=== PATIENT | female | born 1955 | race Caucasian/White ===

== ENCOUNTER → 2016-08-14 | Outpatient (CLI) | payer OTHER ==
[~2016-08-14] MED LIST: AGM875 PO; ATOR-22 PO; CETI10TA84 PO; CLR10 PO; LPTUNK; PRLSR20 PO; RXC5 PO; TRAM-10 PO; VSC/5 PO; ZFRODT4 SL; ZNTT/150 PO
--- NOTE | 2016-08-14 16:33 | DIAGNOSTIC IMAGING REPORT ---
CERVICAL SPINE MRI HISTORY: Pain. Neuropathy. CERVICAL RADICULOPATHY TECHNIQUE: Multiplanar multisequence MRI of the cervical spine was performed without the use of contrast. COMPARISON STUDY: None. FINDINGS: Findings of an anterior cervical fusion from C5 through C7. Signal characteristics of the vertebral bodies as well as intervertebral discs appear unremarkable. C2-C3: No significant central canal or neural foraminal narrowing. C3-C4: Minimal osteophytic narrowing of the neuroforamina bilaterally. C4-C5: Mild broad-based disc herniation. Minimal to mild impact anterior aspect cervical cord. Moderate narrowing of the neuroforamina bilaterally. C5-C6: No significant central canal or neural foraminal narrowing. C6-C7: No significant central canal or neural foraminal narrowing. C7-T1: No significant central canal or neural foraminal narrowing. IMPRESSION: 1. Findings consistent with an anterior fusion from C5 through C7. 2. Mild broad-based disc herniation C4-C5 with mild impact upon the anterior cervical cord and moderate to rather significant narrowing of the neural foramina bilaterally. 3. Mild narrowing of the neuroforamina bilaterally at C3-C4. Electronically signed by: Ralph Ga M.D. 08/14/2016 4:31 PM Dictated Date/Time: 08/14/2016 4:29 PM
== END | disposition home or self-care (01) ==
LOC: C.MRIBC 15:17
PROVIDERS: ATTEND Internal Medicine
DX: M54.12 Radiculopathy, cervical region (principal); Z98.1 Arthrodesis status

== ENCOUNTER 2016-11-12 05:35 | Observation (INO) | payer OTHER ==
[2016-10-29 09:19] VITALS: BMI 33.0
--- NOTE | 2016-10-29 09:46 | PAT Medication Instructions ---
Service Date Oct 29, 2016. Current Home Medication List Atorvastatin (Lipitor), 20 MG PO QAM Cetirizine (Zyrtec), 10 MG PO QAM Omeprazole (Prilosec), 40 MG PO QAM Tramadol (Ultram), 50 MG PO PRN Medication Instructions For Your Scheduled Surgery - Hold the following medications the morning of surgery: Cetirizine (Zyrtec), 10 MG PO QAM - Take the following medications the morning of surgery with a sip of water OTHERWISE NOTHING TO EAT OR DRINK AFTER MIDNIGHT: Tramadol (Ultram), 50 MG PO PRN (may take if needed up to 4 hours prior to surgery) Atorvastatin (Lipitor), 20 MG PO QAM Omeprazole (Prilosec), 40 MG PO QAM - Take the following medications as scheduled the night before surgery: Tramadol (Ultram), 50 MG PO PRN If you have any questions please call us at [phone] or [phone] or [phone]
[2016-10-29 10:28] LABS: BASO % 0.8 %; BASO ABS # 0.04 K/uL (0-0.2); COMPLETE YES; EOS % 3.8 %; HEMATOCRIT 40.7 % (37-47); LYMPH % 31.1 %; LYMPH ABS # 1.47 K/uL (1.2-3.4); MEAN CELL VOLUME 90.6 fL (80-100); MEAN CORPUSCULAR HGB CONC 34.2 g/dl (32-36); MEAN PLATELET VOLUME 9.6 fL (7.4-10.4); MONO % 11.2 %; NEUT % 53.1 %; PLATELET COUNT 237 K/uL (130-400); RED BLOOD COUNT 4.49 M/uL (4.2-5.4); WHITE BLOOD COUNT 4.73 K/uL (4.8-10.8)
--- NOTE | 2016-10-29 10:57 | DIAGNOSTIC IMAGING REPORT ---
CHEST PREADMISSION(PA/LAT) HISTORY: 61 years Female preadmission exam COMPARISON: Chest radiograph 05/20/2006 TECHNIQUE: Frontal and lateral views of the chest FINDINGS: Cardiomediastinal and hilar silhouettes are within normal limits. There is no pneumothorax, pleural effusion or focal airspace consolidation. There is mild elevation of the right hemidiaphragm. There is atherosclerosis of the aorta. Fusion hardware of the lower cervical spine is partially imaged. The bones appear grossly intact. IMPRESSION: No acute cardiopulmonary process. The above report was generated using voice recognition software. It may contain grammatical, syntax or spelling errors. Electronically signed by: Luis Mandel M.D. 10/29/2016 10:56 AM Dictated Date/Time: 10/29/2016 10:55 AM
[2016-10-29 11:25] LABS: BUN/CREATININE RATIO 19.6 (10-20); CALCIUM 9.2 mg/dl (8.5-10.1); CREATININE 0.73 mg/dl (0.60-1.20); POTASSIUM 3.8 mmol/L (3.5-5.1)
[2016-10-29 12:37] LABS: URINE APPEARANCE CLEAR (CLEAR); URINE BILIRUBIN NEG (NEG); URINE COLOR YELLOW; URINE NITRITE NEG (NEG); URINE SPECIFIC GRAVITY 1.017 (1.000-1.030); UROBILINOGEN NEG (NEG)
[2016-10-29 12:47] LABS: MANUAL MICROSCOPIC REQUIRED? NO; REVIEW REQ? NO
[~2016-11-12] VITALS: Ht 154.9 cm; Wt 78.9 kg
[2016-11-12] VITALS (15 sets, daily range): BP systolic 123–148; BP diastolic 81–99; PULSE 62–102; TEMP 36.4–36.9; O2SAT 94–100; Ht 154.9 cm; Wt 78.9 kg
[~2016-11-12 05:35] MED LIST changes: -AGM875 PO; -CLR10 PO; -LPTUNK; -RXC5 PO; -VSC/5 PO; -ZFRODT4 SL; -ZNTT/150 PO
[2016-11-12] MEDS ORDERED: CEFAZOLIN 1000MG/55 ML D5W IV SCH (06:00)
[2016-11-12] MEDS ORDERED: LACTATED RINGER'S 1000ML 1,000 ML IV SCH ×2 (06:00→09:27)
[2016-11-12] MEDS ORDERED: MIDAZOLAM HCL 1 MG/ML 2ML VIAL ONE (06:49)
[2016-11-12] MEDS ORDERED: FENTANYL CITRATE INJ 50 MCG/1 ML 2 ML VIAL ONE ×3 (06:49→08:34)
[2016-11-12] MEDS ORDERED: SODIUM CHLORIDE 0.9% PF 50 ML VIAL ONE (06:58)
[2016-11-12] MEDS ORDERED: BACITRACIN 50000 UNIT VIAL ONE (06:58)
[2016-11-12] MEDS ORDERED: SCOPOLAMINE 1.5 MG TDSY TD ONE (07:23)
[2016-11-12] MEDS ORDERED: ONDANSETRON INJ 2 MG/ML 2 ML VIAL IV PRN (07:30)
[2016-11-12] MEDS ORDERED: EpHEDrine SULFATE INJ 50 MG/ML AMP IV PRN (07:30)
[2016-11-12] MEDS ORDERED: HYDROmorphone INJ 1 MG/ML SYR IV PRN ×2 (07:30→11:15)
[2016-11-12] MEDS ORDERED: NURSING VERBAL MED ORDER ONE ×3 (07:30→14:00)
[2016-11-12] MEDS ORDERED: ATROPINE SULFATE 0.1 MG/ML 5ML SYR IV PRN (07:30)
[2016-11-12] MEDS ORDERED: FENTANYL CITRATE INJ 50 MCG/1 ML 2 ML VIAL IV PRN (07:30)
--- NOTE | 2016-11-12 07:39 | History & Physical Bridge Note ---
H&P Re-Evaluation Bridge Note: I have examined the patient, reviewed the History & Physical and in the interval since the performance of the History & Physical I have noted the following changes of clinical significance: No changes noted
--- NOTE | 2016-11-12 07:40 | History and Physical ---
History & Physical Date Nov 12, 2016. Chief Complaint neck and arm pain History of Present Illness The patient is a 61 year old female with complaints of neck and arm pain Additional History Hepatic Disease: No Endocrine Disorder: No Kidney Disease: No Hypertension: No Heart Disease: No Bleeding Tendencies: No Infectious Diseases: No Allergies Coded Allergies: Duloxetine (Unverified Allergy, Severe, HALLUCINATIONS, 11/12/16) Adhesives (Unverified Allergy, Unknown, RED HIVES PATCHES, 11/12/16) Pregabalin (Verified Adverse Reaction, Severe, HALLUCINATIONS, 11/12/16) Home Medications Scheduled Atorvastatin (Lipitor), 20 MG PO QAM Cetirizine (Zyrtec), 10 MG PO QAM Omeprazole (Prilosec), 40 MG PO QAM Tramadol (Ultram), 50 MG PO PRN Physical Examination Skin: warm/dry, no rash Eyes: normal inspection, EOMI, sclerae normal ENT: normal ENT inspection, pharynx normal Head: normocephalic, atraumatic Neck: supple, no adenopathy, trachea midline Respiratory/Chest: lungs clear, normal breath sounds, no respiratory distress Cardiovascular: regular rate, rhythm, no edema, no murmur Abdomen / GI: normal bowel sounds, non tender Back: normal inspection Extremities: normal inspection, normal range of motion Neurologic/Psych: no motor/sensory deficits, alert, normal reflexes, oriented x 3 Diagnosis cervical stenosis Plan of Treatment acdf C4-5
[2016-11-12] MEDS ORDERED: HYDROmorphone INJ 2 MG/ML SYR/VIAL ONE (08:13)
[2016-11-12] MEDS ORDERED: RANITIDINE HCL 25 MG/ML INJ ONE (08:44)
[2016-11-12] MEDS ORDERED: METOCLOPRAMIDE HCL INJ 5 MG/ML 2 ML VIAL ONE (08:44)
[2016-11-12] MEDS ORDERED: EpHEDrine SULFATE 50MG/5ML SYR ONE (08:44)
[2016-11-12] MEDS ORDERED: ONDANSETRON INJ 2 MG/ML 2 ML VIAL ONE ×2 (08:44→09:37)
[2016-11-12] MEDS ORDERED: ROCURONIUM BROMIDE 10 MG/ML 5 ML VIAL ONE (08:44)
[2016-11-12] MEDS ORDERED: DEXAMETHASONE SOD INJ 4 MG/ML VIAL ONE (08:44)
[2016-11-12] MEDS ORDERED: PROPOFOL IV EMULSION 10 MG/ML 20 ML VIAL IV ONE (08:44)
[2016-11-12] MEDS ORDERED: LIDOCAINE HCL 2% 2 ML VIAL (20MG/ML) ONE (08:44)
[2016-11-12] MEDS ORDERED: CEFAZOLIN SOD 1 GM VIAL ONE (08:49)
[2016-11-12] MEDS ORDERED: DO NOT ADMINISTER FLU VACCINE PRN ×3 (09:15)
[2016-11-12] MEDS ORDERED: OXYCODONE HCL IR 5 MG TAB (IMMEDIATE RELEASE) PO PRN (09:15)
[2016-11-12] MEDS ORDERED: LORAZEPAM 0.5 MG TAB PO PRN (09:15)
[2016-11-12] MEDS ORDERED: DEXAMETHASONE INJ 8 MG in SYRINGE 0 ML IV PRN ×2 (09:15→09:30)
[2016-11-12] MEDS ORDERED: LORAZEPAM INJ 0.5 MG in SYRINGE 0.75 ML IV PRN (09:15)
[2016-11-12] MEDS ORDERED: HYDROmorphone INJ 0.5 MG/0.5 ML SYR IV PRN (09:15)
[2016-11-12] MEDS ORDERED: DO NOT ADMINISTER PNEUMOCOCCAL VACCINE PRN ×2 (09:15)
[2016-11-12] MEDS ORDERED: NALOXONE HCL 0.4 MG/1 ML VIAL/CARP IV PRN ×2 (09:15→09:30)
[2016-11-12] MEDS ORDERED: DiphenhydrAMINE HCL 50 MG/ML VIAL IV PRN (09:15)
[2016-11-12] MEDS ORDERED: RACEPINEPHRINE 2.25% NEBU SOLN 0.5 ML VIAL INH PRN ×2 (09:15→09:30)
[2016-11-12] MEDS ORDERED: FLOSEAL HEMOSTATIC MATRIX 5ML TOP ONE (09:15)
[2016-11-12] MEDS ORDERED: ACETAMINOPHEN IV 1,000 MG in EMPTY BAG 0 ML IV PRN (09:15)
[2016-11-12] MEDS ORDERED: MAGNESIUM HYDROXIDE SUSP 30 ML UDC PO PRN (09:15)
--- NOTE | 2016-11-12 09:16 | [facility] Operative Report ---
Operative Report Operative Date Nov 12, 2016. Pre-Operative Diagnosis Cervical Stenosis Post-Operative Diagnosis Same Procedure(s) Performed #1 anterior cervical discectomy C4 5. #2 anterior cervical arthrodesis C4 5. 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 #4 placement of Aimee bone grafting in the interbody cage. Surgeon Dr. Eric Arreola Public Health Policy Analyst Surgeon(s) Luci Joseph PA-[place]ke Findings Cervical stenosis Specimens a. explanted hardware Description of Procedure Patient was met with preoperatively case discussed all questions were addressed. That point patient was taken back to the operative suite and after undergoing successful intubation placed in a supine position the Jimmie table head in [place] trailhead maintenance worker. All bony promises well-padded. At this point the anterior cervical spine was prepped draped nostril fashion. Incision was placed on the right anterior aspect of the cervical spine overlying the C4 5 region. Sharp dissection with the assistance of bipolar cautery was performed onto an exposing the anterior cervical spine C4 5. Self-retaining retractors placed. I then performed a complete discectomy of C4 5 out to the uncovertebral joints bilaterally. This included removal all posterior annular fibers and longitudinal ligament. As well as foraminal decompression. Endplates were then burred to subcortical bleeding bone and a 7 mm cage filled with Aimee bone grafting tapped in position. 16mm screws were placed with fluoroscopic visualization. Incision was then copiously irrigated explored to ensure there is no damage to surrounding structures remaining bleeding. 15 round GAIL drain inserted. Incision was then closed with 2 Vicryl in the fascia for Monocryl for final skin closure. Steri-Strips sterile dressing placed. Patient awakened and taken to PACU stable condition. Please note Luci Downey was present throughout the entire procedure involved in patient positioning complex portions of the procedure and final skin closure. I attest to the content of the Intraoperative Record and any orders documented therein. Any exceptions are noted below.
[2016-11-12] MEDS ORDERED: GLYCOPYRROLATE INJ 0.2 MG/ML VIAL ONE (09:37)
[2016-11-12] MEDS ORDERED: NEOSTIGMINE METHYLSULFATE 1 MG/ML 10ML VIAL ONE (09:37)
[2016-11-12] MEDS ORDERED: ESMOLOL HCL 10 MG/ML 10 ML VIAL ONE (09:37)
--- NOTE | 2016-11-12 09:45 | DIAGNOSTIC IMAGING REPORT ---
INTRAOPERATIVE RADIOGRAPHS CLINICAL HISTORY: Anterior cervical spine fusion. Fluoroscopy time: 10 seconds. FINDINGS: 2 spot fluoroscopic views of the cervical spine are presented. There are changes from anterior fusion seen at C4-C5 with evidence of discectomy. Anterior fusion hardware is also seen in the lower cervical spine from C5 through C7. The orthopedic hardware appears intact. An endotracheal tube is in place. IMPRESSION: Intraoperative images from anterior cervical spinal fusion as above. See operative report for detailed findings. Electronically signed by: Vlad Liu M.D. 11/12/2016 9:44 AM Dictated Date/Time: 11/12/2016 9:41 AM
[2016-11-12] MEDS ORDERED: IV FLUIDS COMPLETED PRN (10:00)
--- NOTE | 2016-11-12 10:42 | Anesthesiology Progress Note ---
Anesthesia Post Op Note Date & Time Nov 12, 2016 at 10:41 Vital Signs Pain Intensity: 0 Vital Signs Past 12 Hours Date Time Temp Pulse Resp B/P (MAP) Pulse Ox O2 Delivery O2 Flow Rate FiO2 11/12/16 10:30 36 63 20 143/97 100 Nasal Cannula 3 11/12/16 09:17 36 80 16 160/93 100 Mask 10 11/12/16 05:59 36.6 72 18 137/89 (105) 98 Room Air Notes Mental Status: alert / awake / arousable, participated in evaluation Pt Amnestic to Procedure: Yes Nausea / Vomiting: adequately controlled Pain: adequately controlled Airway Patency, RR, SpO2: stable & adequate BP & HR: stable & adequate Hydration State: stable & adequate Anesthetic Complications: no major complications apparent
[2016-11-12] MEDS ORDERED: RXC5 PO (12:31)
--- NOTE | 2016-11-12 12:31 | Discharge Instructions ---
Discharge Instructions Date of Service Nov 12, 2016. Admission Reason for Admission: Cervical Spinal Stenosis Discharge Discharge Diagnosis / Problem: cervical stenosis Discharge Goals Goal(s): Improve function Activity Recommendations Activity Limitations: per Instructions/Follow-up section . Instructions / Follow-Up Instructions / Follow-Up ACTIVITY RECOMMENDATIONS: SELF CARE INSTRUCTIONS AFTER CERVICAL FUSIONS 1. No smoking. Smoking drastically decreases the chance of a solid fusion. 2. No bending, lifting more than 5 pounds, or twisting (roll like a log when turning in bed). 3. You may shower 3 days after surgery. Thoroughly dry wound. Do not soak in the tub. 4. Cervical collar: Must be worn at all times including sleeping. You may remove the brace only to bath, eat and if you are sitting in a recliner. 5. Please walk as much as you can for exercise. Gradually increase the distance that you walk as your endurance increases. SPECIAL CARE INSTRUCTIONS: VERY IMPORTANT TO READ AND REVIEW A. Do not take any anti-inflammatory medications (i.e. Indocin, Advil, Aspirin, Naprosyn, Aleve, Motrin, etc.) as these may inhibit the chance of a solid fusion. Tylenol is okay to take. B. Your surgical incision has been closed with a cosmetic suture under the skin that will dissolve in about 6 weeks. In 14 days, you can use a pair of clean scissors and cut the suture that is left outside of the skin at the ends of your incision. C. Complications are uncommon, but please contact us if you have any signs or symptoms of: 1. wound infection (fever higher than 102.5 degrees F, redness, separation of wound, drainage, or increasing pain from the incision) 2. blood clots in legs (pain, swelling, redness and warmth in legs) 3. urinary tract infection (fever higher than 102.5 degrees, burning upon urination or increased frequency of urination) 4. nerve problems (inability to walk on your toes or heels, numbness, loss of bowel or bladder control) 5. any other symptoms that concern you. D. Please call the office at if you have any concerns or questions about your operation or recovery. MANAGING PAIN AFTER SPINAL SURGERY 1. Narcotic medication is intended for short-term use and will be provided for surgical pain. Surgical pain usually lasts for a period of 4-6 weeks. Narcotic medication includes Percocet, Vicodin, Darvocet, Tylenol #3 or Lortab. 2. Longer-term pain is more appropriately treated with non-narcotic medication such as Tylenol ES. 3. Muscle spasm is not appropriately treated with narcotics. Muscle relaxers such as Soma, Flexeril or Skelaxin can be used along with Tylenol ES. 4. Remember that we all live with some "aches and pains". This is not unusual or uncommon after an injury or as we get older. 5. We will provide appropriate medication within the normal guidelines of their prescribed use. We will also be very cautious and aware of potential abuse and extended duration of patients' medication needs. 6. Please allow 2-3 days to process refills. Prescriptions will not be mailed but must be picked up at the office. FOLLOW UP VISIT: Keep your scheduled follow-up appointment. Any questions, please call the office at . Current Hospital Diet Patient's current hospital diet: Clear Liquid Diet Discharge Diet Recommended Diet: Regular Diet Procedures Procedures Performed: #1 anterior cervical discectomy C4 5. #2 anterior cervical arthrodesis C4 5. 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 #4 placement of Aimee bone grafting in the interbody cage. Pending Studies Studies pending at discharge: no Medical Emergencies . Who to Call and When: Medical Emergencies: If at any time you feel your situation is an emergency, please call 911 immediately. . Non-Emergent Contact Non-Emergency issues call your: Primary Care Provider . "Provider Documentation" section prepared by Eric Arreola. . VTE Core Measure Inpt VTE Proph given/why not?: Derek Garcia, SCD's
[2016-11-12] MEDS ORDERED: PHENAZOPYRIDINE HCL 100 MG TAB PO PRN (14:15)
[2016-11-12] MEDS: CHECK SCOPOLAMINE PATCH PLACEMENT SCH ×2 (15:56→23:33)
[2016-11-12] MEDS: CEFAZOLIN IV 2,000 MG in DEXTROSE 5% 50ML 50 ML IV SCH ×2 (16:03→23:33)
[2016-11-12] MEDS: DEXAMETHASONE INJ 6 MG in SYRINGE 0 ML IV SCH ×2 (16:11→23:34)
[2016-11-12] MEDS: ONDANSETRON INJ 2 MG/ML 2 ML VIAL IV PRN ×2 (16:11→23:44)
[2016-11-12] MEDS: DOCUSATE SODIUM 100 MG CAP PO SCH (21:24)
[2016-11-13] VITALS (10 sets, daily range): BP systolic 120–134; BP diastolic 83–94; PULSE 83–91; TEMP 36.7–36.8; O2SAT 95–99
[2016-11-13] MEDS: DEXAMETHASONE INJ 6 MG in SYRINGE 0 ML IV SCH (08:10)
[2016-11-13] MEDS: CHECK SCOPOLAMINE PATCH PLACEMENT SCH (08:10)
[2016-11-13] MEDS: CEFAZOLIN IV 2,000 MG in DEXTROSE 5% 50ML 50 ML IV SCH (08:10)
[2016-11-13] MEDS: ONDANSETRON INJ 2 MG/ML 2 ML VIAL IV PRN (08:10)
[2016-11-13] MEDS: DOCUSATE SODIUM 100 MG CAP PO SCH (08:19)
--- NOTE | 2016-11-13 08:21 | Anesthesiology Progress Note ---
Anesthesia Post Op Note Date & Time Nov 13, 2016 at 08:20 Vital Signs Pain Intensity: 4 Vital Signs Past 12 Hours Date Time Temp Pulse Resp B/P (MAP) Pulse Ox O2 Delivery O2 Flow Rate FiO2 11/13/16 07:55 36.7 84 16 134/90 (105) 96 Room Air 11/13/16 07:20 86 18 98 Room Air 11/13/16 07:00 36.8 87 20 123/83 97 Room Air 11/13/16 07:00 Room Air 11/13/16 05:50 36.7 83 16 120/83 96 Nasal Cannula 2.0 Humidified Oxygen 11/13/16 04:30 84 18 95 Room Air 11/13/16 03:50 36.8 84 16 130/87 98 Humidified Oxygen 2.0 11/13/16 01:50 36.7 91 16 132/94 97 Nasal Cannula Humidified Oxygen 11/13/16 00:30 86 18 99 Nasal Cannula 3.0 11/12/16 23:50 Nasal Cannula 2.0 Humidified Oxygen 11/12/16 23:50 36.9 88 16 138/94 96 Nasal Cannula 2.0 Humidified Oxygen 11/12/16 21:49 36.9 98 14 145/91 (92) 96 Nasal Cannula 4.0 Humidified Oxygen 11/12/16 20:27 93 16 100 Nasal Cannula 3.0 Notes Mental Status: alert / awake / arousable Pt Amnestic to Procedure: Yes Nausea / Vomiting: adequately controlled Pain: adequately controlled Airway Patency, RR, SpO2: stable & adequate BP & HR: stable & adequate Hydration State: stable & adequate
--- NOTE | 2016-11-13 08:26 | Discharge Summary ---
Orthopedic Discharge Summary Admission Date/Reason Nov 12, 2016 at 09:11 Cervical Spinal Stenosis. Discharge Date/Disposition Nov 13, 2016 Home Diagnosis Principal Diagnosis: Cervical stenosis Admission Physical Exam As per Admitting History & Physical. Hospital Course Patient underwent anterior discectomy and fusion tolerated this well and taken to the orthopedic floor postoperatively. Postoperative day #1 arm symptoms improved swallowing well no hoarseness subsequently discharged home discharge orders and instructions found the chart for further review. Discharge Instructions Please refer to the electronic Patient Visit Report (Discharge Instructions) for additional information.
[2016-11-13] MEDS ORDERED: ATORVASTATIN 20 MG TAB PO SCH (09:00)
[2016-11-13] MEDS ORDERED: PANTOprazole SOD 40 MG TAB PO SCH (09:00)
[2016-11-13] MEDS ORDERED: CETIRIZINE HCL 10 MG TAB PO SCH (09:00)
[2016-11-14] MEDS ORDERED: BISACODYL 5 MG TABEC PO PRN (06:00)
[2016-11-14] MEDS ORDERED: BISACODYL 10 MG SUPP PR PRN (06:00)
[2016-11-14] MEDS ORDERED: POLYETHYLENE (MIRALAX) 17 GM PACK PO SCH (09:00)
[2016-11-15] MEDS ORDERED: CHECK SCOPOLAMINE PATCH PLACEMENT SCH (06:00)
[2016-11-15] MEDS ORDERED: SCOPOLAMINE 1.5 MG TDSY TD SCH (09:00)
== END 2016-11-13 09:45 | disposition home or self-care (01) ==
LOC: C.ACU 05:35 → C.3E 09:11 → ENRESERV 09:45
PROVIDERS: ADMIT Orthopaedic Surgery Orthopaedic Surgery of the Spine; ATTEND Orthopaedic Surgery Orthopaedic Surgery of the Spine
DX: M48.02 Spinal stenosis, cervical region (principal)

== ENCOUNTER → 2017-04-16 | Outpatient (CLI) | payer OTHER ==
[~2017-04-16] MED LIST changes: +RXC5 PO
[2017-04-16 11:34] LABS: ALBUMIN 3.9 gm/dl (3.4-5.0); ALT/SGPT 36 U/L (12-78); AST/SGOT 18 U/L (15-37); BLOOD UREA NITROGEN 21 mg/dl (7-18); CALCIUM 8.7 mg/dl (8.5-10.1); CARBON DIOXIDE 30 mmol/L (21-32); CREATININE 0.75 mg/dl (0.60-1.20); GLUCOSE 92 mg/dl (70-99); POTASSIUM 3.6 mmol/L (3.5-5.1); SODIUM 138 mmol/L (136-145)
[2017-04-16 11:37] LABS: ALKALINE PHOSPHATASE 127 U/L (45-117); CHOLESTEROL 218 mg/dl (0-200); LDL CHOLESTEROL CALCULATED 117 mg/dl; TOTAL PROTEIN 7.2 gm/dl (6.4-8.2)
== END | disposition home or self-care (01) ==
LOC: C.LABBC 08:07
PROVIDERS: ATTEND Internal Medicine
DX: E78.5 Hyperlipidemia, unspecified (principal); R74.8 Abnormal levels of other serum enzymes; K21.9 Gastro-esophageal reflux disease without esophagitis; R35.0 Frequency of micturition